=== PATIENT | male | born 1965 | race Two or more races ===

== ENCOUNTER 2017-12-07 09:14 | Outpatient (CLI) | payer OTHER | END 2017-12-07 09:20 | disposition home or self-care (01) | LOC: RX STUDY 09:14 | DX: R13.14 Dysphagia, pharyngoesophageal phase (principal) ==

== ENCOUNTER 2018-01-02 07:47 | Outpatient (CLI) | payer OTHER | END 2018-01-02 07:53 | disposition home or self-care (01) | LOC: RAD 07:47 | DX: M79.672 Pain in left foot (principal) ==

== ENCOUNTER 2018-03-16 07:27 | Outpatient (CLI) | payer OTHER | END 2018-03-16 17:00 | disposition home or self-care (01) | LOC: SONOGRAMA 07:27 → MAMO-SONO 07:45 → SONOGRAMA 17:00 | DX: N20.0 Calculus of kidney (principal) ==

== ENCOUNTER 2021-09-10 07:15 | Outpatient (CLI) | payer OTHER | END 2021-09-10 07:26 | disposition home or self-care (01) | LOC: SONOGRAMA 07:15 | PROVIDERS: ATTEND Urology | DX: N20.0 Calculus of kidney (principal) ==